=== PATIENT | male | born 1985 | race Caucasian/White ===

== ENCOUNTER 2017-03-07 20:36 | Emergency (ER) | payer OTHER ==
[~2017-03-07] VITALS: Ht 157.5 cm; Wt 63.5 kg
[2017-03-07 20:48] VITALS: Ht 157.5 cm; Wt 63.5 kg
[2017-03-07] MEDS ORDERED: IBUP800T25 PO (22:22)
--- NOTE | 2017-03-07 22:27 | ERD ---
ER Documentation Chief Complaint Date/Time DATE: 03/07/17 TIME: 22:23 Chief Complaint Laceration of the Left index finger HPI 31-year-old male presents with laceration to his left index finger that he sustained today when cutting with a knife in the kitchen. Patient sliced distal portion of fingertip off, denies any numbness or tingling. Pain is mild to moderate. Patient was unable to get the bleeding to stop. Tetanus vaccination is up-to-date. ROS All systems reviewed and are negative except as per history of present illness. Medications Home Meds Active Scripts Ibuprofen* (Motrin*) 800 Mg Tab, 800 MG PO Q6, #30 TAB Prov:CHINYERE SMITH PA-C 03/07/17 Allergies Allergies: Coded Allergies: No Known Allergy (Unverified , 03/07/17) PMhx/Soc Medical and Surgical Hx: pt denies Medical Hx, pt denies Surgical Hx Hx Alcohol Use: No Hx Substance Use: No Hx Tobacco Use: No Smoking Status: Never smoker FmHx Family History: No diabetes Physical Exam Vitals Vital Signs Date Time Temp Pulse Resp B/P Pulse Ox O2 Delivery O2 Flow Rate FiO2 03/07/17 20:48 99.0 109 20 124/79 98 Physical Exam General: well developed, well nourished, alert, nontoxic, no distress Head: normocephalic, atraumatic Respiratory: Clear to auscaultation bilaterally, speaks in full sentences, no use of accesory muscles or labored breathing, no rales, ronchi, or wheezing Cardiovascular: RRR, No murmurs Extremities: 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 Procedures/MDM Patient presents with partial finger amputation secondary to knife in the kitchen. He is neurovascularly intact. The wound was irrigated with normal saline and Betadine. Surgicel was applied to get the bleeding stopped. Low suspicion for fracture given that the wound is not very deep and superficial. Recommended 2 day wound check. Patient discharged with ibuprofen for pain. Recommended this patient follow up with her primary care doctor within 48 hours or return to the emergency room for any worsening of symptoms. However this time I do believe there is suitable for outpatient management. I answered all their questions and they agreed with the plan and were discharged home. Departure Diagnosis: Primary Impression: Fingertip avulsion Condition: Stable Patient Instructions: Finger Tip Amputation, Open Treatment Additional Instructions: Llame al doctor ONOFRE y huseyin jeffery ALVARO PARA DENTRO DE 1-2 SUMNER.Dgale a la secretaria que nosotros le instruimos hacer esta alvaro.Avise o llame si brown condicin se empeora antes de la alvaro. Regresa aqui si peor o no mejor. CHINYERE SMITH PA-C Mar 07, 2017 22:27
== END 2017-03-07 22:43 | disposition home or self-care (01) ==
LOC: FTE 20:36
DX: S61.301A Unspecified open wound of left index finger with damage to nail, initial encounter (principal); W26.0XXA Contact with knife, initial encounter; Y92.000 Kitchen of unspecified non-institutional (private) residence as the place of occurrence of the external cause
CPT/HCPCS: 99283